=== PATIENT | male | born 1995 | race Caucasian/White ===

== ENCOUNTER 2017-10-08 15:16 | Emergency (ER) | payer OTHER ==
[2017-10-08] MEDS ORDERED: Ibuprofen 200 MG TAB ONE ×2 (15:54→15:56)
== END 2017-10-08 16:08 | disposition home or self-care (01) ==
LOC: MADERS 15:16
DX: T25.222A Burn of second degree of left foot, initial encounter (principal); G80.9 Cerebral palsy, unspecified; X10.2XXA Contact with fats and cooking oils, initial encounter; Y93.G3 Activity, cooking and baking
CPT/HCPCS: 99283

== ENCOUNTER 2017-10-30 14:33 | Emergency (ER) | payer OTHER ==
[2017-10-30] MEDS ORDERED: HYDROcodone/Acetaminophen 10/325 mg Tablet ONE (15:07)
--- NOTE | 2017-10-30 15:30 | RAD ---
3 VIEWS LEFT SHOULDER: Date: 10/30/17 PROVIDED CLINICAL HISTORY: Left shoulder pain. FINDINGS: No evidence for fracture or other acute osseous abnormality. If there is persistent clinical concern, conservative management and follow-up imaging are advised. IMPRESSION: As above. POS: [email or web address]
--- NOTE | 2017-10-30 15:38 | RAD ---
LEFT KNEE FOUR VIEWS 10/30/17 HISTORY: Injury, left knee pain. FINDINGS/IMPRESSION: No acute fracture or dislocation identified. POS: [facility]
== END 2017-10-30 15:35 | disposition home or self-care (01) ==
LOC: MADERS 14:33
DX: S40.212A Abrasion of left shoulder, initial encounter (principal); W17.89XA Other fall from one level to another, initial encounter

== ENCOUNTER 2017-12-22 13:26 | Emergency (ER) | payer OTHER ==
[2017-12-22] MEDS ORDERED: Ibuprofen 800 MG TAB ONE (14:20)
--- NOTE | 2017-12-22 14:58 | RAD ---
FOUR VIEWS LEFT KNEE: INDICATIONS: Left knee injury. COMPARISON: 10/30/2017. FINDINGS: No acute fracture or subluxation is evident. No definite joint capsular distention is noted. IMPRESSION: No acute osseous abnormality. POS: [facility]
== END 2017-12-22 14:20 | disposition home or self-care (01) ==
LOC: MADERS 13:26
DX: S80.02XA Contusion of left knee, initial encounter (principal); S60.417A Abrasion of left little finger, initial encounter; G80.9 Cerebral palsy, unspecified; V99.XXXA Unspecified transport accident, initial encounter

== ENCOUNTER 2018-04-30 15:22 | Emergency (ER) | payer OTHER | END 2018-04-30 16:10 | disposition home or self-care (01) | LOC: MADERS 15:22 | DX: L30.9 Dermatitis, unspecified (principal) | CPT/HCPCS: 99282 ==

== ENCOUNTER 2018-07-19 22:49 | Emergency (ER) | payer OTHER ==
[~2018-07-19 22:49] MED LIST: Sodium Chloride 0.9% 1,000 ML BAG ONE
[2018-07-19 23:38] LABS: #Basophils 0.1 thou/uL (0.0-0.2); #Eosinphils 0.1 thou/uL (0.0-0.7); #Lymphocytes 1.3 thou/uL (1.20-3.40); %Basophils 0.9 % (0.0-1.0); %Eosinophils 1.1 % (0.0-10.0); %Lymphocytes 12.5 % (21.0-51.0); %Monocytes 9.6 % (0.0-10.0); Hemoglobin 14.7 g/dL (14.0-18.0); Mean Corpuscular HGB CONC 33.3 g/dL (32.0-36.0); Mean Corpuscular Hemoglobin 28.8 pg (27.0-31.0); Mean Corpuscular Volume 86.3 fL (78.0-98.0); Mean Platelet Volume 6.9 fL (7.4-10.4); Platelet Count 196 thou/uL (130-400); Red Blood Cell (RBC) Count 5.12 mill/uL (4.70-6.10); White Blood Cell (WBC) Count 10.5 thou/uL (4.8-10.8)
[2018-07-19] MEDS ORDERED: Famotidine In NaCl 20 mg/50 ml Premix Bag ONE (23:38)
[2018-07-19] MEDS ORDERED: Ondansetron HCl/PF 4 MG/2 ML Vial ONE (23:38)
[2018-07-19] MEDS ORDERED: Acetaminophen 500 MG TAB ONE (23:40)
[2018-07-19] MEDS ORDERED: cefTRIAXone\\ROCEPHIN 1 GM VIAL ONE (23:40)
[2018-07-19] MEDS ORDERED: Ketorolac Tromethamine 30 MG/ML VIAL ONE (23:40)
[2018-07-19 23:52] LABS: Anion Gap 15 mmol/L (10-20); BUN (Urea Nitrogen) 10 mg/dL (8.9-20.6); CK (CPK) 256 U/L (30-200); Calc. Creatinine Clearance 0 mL/min (70-130); Calcium 9.2 mg/dL (7.8-10.44); Carbon Dioxide 23 mmol/L (22-29); Chloride 108 mmol/L (98-107); Estimated GFR-MDRD Greater than 90; Glucose 118 mg/dL (70-105); Potassium 3.6 mmol/L (3.5-5.1); Sodium 142 mmol/L (136-145)
== END 2018-07-20 00:53 | disposition home or self-care (01) ==
LOC: MADERS 22:49
DX: B34.9 Viral infection, unspecified (principal); G80.9 Cerebral palsy, unspecified; F17.210 Nicotine dependence, cigarettes, uncomplicated
CPT/HCPCS: 36415; 80048; 82550; 83605; 85025; 87804; 96365; 96375; J0696; J1885; J2405; J7050

== ENCOUNTER 2022-04-25 16:38 | Emergency (ER) | payer OTHER ==
[2022-04-25] MEDS ORDERED: Metoclopramide HCl 10 MG/2 ML VIAL ONE (18:21)
[2022-04-25] MEDS ORDERED: diphenhydrAMINE 50 MG/ML VIAL ONE (18:21)
[2022-04-25] MEDS ORDERED: Ketorolac Tromethamine 30 MG/ML VIAL ONE (18:21)
[2022-04-25 18:32] LABS: #Basophils 0.1 thou/uL (0.0-0.2); #Eosinphils 0.5 thou/uL (0.0-0.7); #Lymphocytes 3.2 thou/uL (1.20-3.40); #Monocytes 0.5 thou/uL (0.11-0.59); #Neutrophils 3.7 thou/uL (1.40-6.50); %Basophils 1.3 % (0.0-1.0); %Eosinophils 6.5 % (0.0-10.0); %Lymphocytes 40.2 % (21.0-51.0); %Monocytes 6.5 % (0.0-10.0); %Neutrophils 45.6 % (42.0-75.0); Hemoglobin 14.9 g/dL (14.0-18.0); Mean Corpuscular HGB CONC 32.1 g/dL (32.0-36.0); Mean Corpuscular Hemoglobin 28.5 pg (27.0-31.0); Mean Corpuscular Volume 88.8 fL (78.0-98.0); Mean Platelet Volume 8.4 fL (7.4-10.4); Platelet Count 205 thou/uL (130-400); RBC Distribution Width 12.7 % (11.5-14.5); Red Blood Cell (RBC) Count 5.23 mill/uL (4.70-6.10)
[2022-04-25 18:37] LABS: Prothrombin Time 13.7 sec (12.0-14.7)
[2022-04-25 18:46] LABS: ALT (SGPT) 100 U/L (8-55); AST (SGOT) 31 U/L (5-34); Alkaline Phosphatase 81 U/L (40-110); Anion Gap 16 mmol/L (10-20); BUN (Urea Nitrogen) 13 mg/dL (8.9-20.6); Bilirubin, Total 0.8 mg/dL (0.2-1.2); Calc. Creatinine Clearance 0 mL/min (70-130); Calcium 9.1 mg/dL (7.8-10.44); Carbon Dioxide 23 mmol/L (22-29); Chloride 107 mmol/L (98-107); Estimated GFR 108; Globulin 2.6 g/dL (2.4-3.5); Glucose 94 mg/dL (70-105); Potassium 4.2 mmol/L (3.5-5.1); Protein, Total 6.6 g/dL (6.0-8.3); Sodium 142 mmol/L (136-145)
== END 2022-04-25 19:31 | disposition home or self-care (01) ==
LOC: MADERS 16:38
DX: G43.909 Migraine, unspecified, not intractable, without status migrainosus (principal); F17.210 Nicotine dependence, cigarettes, uncomplicated
CPT/HCPCS: 36415; 80053; 85025; 85610; 96374; 96375; J1200; J1885; J2765

== ENCOUNTER 2022-05-09 09:55 | Outpatient (CLI) | payer OTHER | END 2022-05-09 09:56 | disposition home or self-care (01) | LOC: MADCT 09:55 | PROVIDERS: ATTEND Family Medicine | DX: R51.9 Headache, unspecified (principal) | CPT/HCPCS: 70450 ==